=== PATIENT | male | born 1945 | race Caucasian/White ===

== ENCOUNTER 2016-07-15 17:31 | Emergency (ER) | payer MEDICARE ==
[~2016-07-15] VITALS: Ht 175.3 cm; Wt 79.5 kg
[2016-07-15 17:36] VITALS: BP 125/81; PULSE 111; RESP 16; O2SAT 96
--- NOTE | 2016-07-15 18:05 | ED.REPORT ---
HPI-Abd Pain M 40 and Over Date of Service Jul 15, 2016 ED Provider: Dr. Teto Chamberlain 70 year old male with a history of lung cancer currently in remission, COPD and GERD who presents to the ED due to constipation and urinary retention. Pt states his last BM was 3-5 days ago. Typically, he goes 2-3 days between BM's. Pt has had urinary urgency for the last few days with minimal urinary output this morning. He reports lower abd pain. Pt is not taking pain medications. Nursing Notes Stated Complaint: ABDOMINAL PAIN/NO BOWEL MOVEMENTS IN DAYS Chief Complaint: Male Abdominal Pain Nursing Notes Reviewed: Yes Allergies: Coded Allergies: No Known Allergies (Verified , 07/15/16) General Time Seen by MD: 18:05 Chief Complaint Abdominal pain, Constipation, Unable to urinate Hx Obtained From: Patient, Spouse Arrived By: Walk-in Sudden in Onset?: No Onset Occurred: 3 days ago Symptom Duration: Since onset Progression since Onset: Constant, Gradually worsening Location: : Abdomen lower Quality: Painful Radiation: : Does not radiate Severity: Current: Moderate Associated with: Denies: Fever, Vomiting Pertinent Negative: Relieved by nothing Past Medical History Past Medical History Lung Cancer- In remission COPD GERD Past Surgical History Reports: Appendectomy Smoking History Current Every Day Smoker Social History + Alcohol and substance use. Ambulatory Status Independent Review of Systems Basic Review of Systems Eyes: Vision NL, No discharge ENT: Hearing NL, No pain, No nasal congestion, No pharyngeal pain Allergy / Immune: No allergy Neurologic: NL mental status, No weakness Psychiatric: Normal thought content Constitutional: Denies: Fever Respiratory: Denies: Shortness of breath Cardiovascular: Denies: Chest pain GI: Reports: Abdominal pain, Constipation, Denies: Vomiting Male: Reports Urination decreased (retention) Complete sys rev & neg: except as marked. Physical Exam Initial Vital Signs Vital Signs (First) Date Time Temp Pulse Resp B/P Pulse Ox O2 Delivery O2 Flow Rate FiO2 07/15/16 17:36 36.1 111 16 125/81 96 Room Air Initial VS: Reviewed Head / Eyes: Atraumatic, Normocephalic, PERRL ENT: Conjunctiva normal, No scleral icterus Neck: Full range of motion Extremities: Vascular intact, Neuro intact Skin: Warm, Dry, No cyanosis Neurologic: Alert, Oriented, Nonfocal Psychiatric: Mood/affect normal, Behavior normal, Normal thought content General/Constitutional: Awake, Alert Respiratory / Chest: No respiratory distress wheezing course Cardiovascular: Heart rate NL, Regular rhythm, Heart sounds NL, Peripheral circulation NL Bowel Sounds / Distention: Positive: Distention moderate distended bladder seen on bedside US Back: Atraumatic, Full range of motion Interpretation & Diagnostics Lab Results Interpretation Result Diagram: 07/15/16 18007/15/16 180 Test 07/15/16 18:00 07/15/16 18:02 07/15/16 21:14 07/15/16 22:40 Hold Purple Top Tube Received (Received) Hold Blue Top Tube Received (Received) Hold Red Top Tube Received (Received) Hold [place] Top Tube Received (Received) White Blood Count 13.7th/mm3 (3.8-10.1) Red Blood Count 5.07mil/mm3 (4.40-5.80) Hemoglobin 15.7g/dL (13.8-17.2) Hematocrit 44.9% (41.0-50.0) Mean Corpuscular Volume 88.6fL (81-100) Mean Corpuscular Hemoglobin 31.0pg (27.0-35.0) Mean Corpuscular Hemoglobin Concent 35.0% (32.0-37.0) Red Cell Distribution Width 12.6% (12.3-15.4) Platelet Count 213bil/L (150-400) Neutrophils (%) (Auto) 88.8% (40-74) Lymphocytes (%) (Auto) 3.9% (14-46) Monocytes (%) (Auto) 6.7% (4-12) Eosinophils (%) (Auto) 0.2% (0-5) Basophils (%) (Auto) 0.2% (0-3) Sodium Level 139mEq/L (134-144) Potassium Level 4.4mEq/L (3.5-5.2) Chloride Level 101mEq/L (97-108) Carbon Dioxide Level 21mmol/L (18-29) Blood Urea Nitrogen 19mg/dL (8-27) Creatinine 1.00mg/dL (0.76-1.27) Estimat Glomerular Filtration Rate 79mL/min (>59) Glucose Level 113mg/dL (60-99) Calcium Level 9.4mg/dL (8.5-10.1) Total Bilirubin 0.6mg/dL (0.0-1.2) Aspartate Amino Transf (AST/SGOT) 21U/L (0-50) Alanine Aminotransferase (ALT/SGPT) 17U/L (0-44) Alkaline Phosphatase 61U/L (25-160) Total Protein 7.4g/dL (6.4-8.4) Albumin 4.6g/dL (3.4-5.0) Urine Color Dark yellow (YELLOW) Urine Appearance Clear (CLEAR,HAZY) Urine pH 5.5 (5.0-8.0) Urine Specific [place] >1.030 (1.003-1.035) Urine Protein Negativemg/dL (NEG,TRACE) Urine Glucose (UA) Negativemg/dL (NEGATIVE) Urine Ketones 15mg/dL (NEGATIVE) Urine Occult Blood Large (NEGATIVE) Urine Nitrite Negative (NEGATIVE) Urine Bilirubin Negative (NEGATIVE) Urine Urobilinogen Normalmg/dL (NORMAL) Urine Leukocyte Esterase Negative (NEGATIVE) Urine RBC 11-50/hpf (0-2) Urine WBC 0-5/hpf (0-5) Urine Epithelial Cells Few/hpf (NONE-MOD) Urine Crystals None seen (NONE SEEN) Urine Bacteria Few/hpf (NONE-FEW) Urine Hyaline Casts None/lpf (NONE) Urine Granular Casts None seen (NONE SEEN) Urine Waxy Casts None seen (NONE SEEN) Urine Red Blood Cell Casts None seen (NONE SEEN) Urine White Blood Cell Casts None seen (NONE SEEN) Urine Mucus None seen (None Seen) Urine Trichomonas None seen (NONE SEEN) Urine Yeast None (NONE SEEN) Urinalysis Comment None Urine Culture Reflexed Not indicated Lactic Acid Level 1.5mmol/L (0.4-2.0) Troponin T 0.010ug/L (0.0-0.011) General Lab Results Interp 1: Labs reviewed Pulse Oximetry Interpretation Pulse Oximetry: Pulse Ox normal (96), On room air X-Ray Abdominal Interpretation IMPRESSION: Acute disease is seen in the acute abdomen series. Cause of abdominal pain is not identified. Right hilar mass previously evaluated and grossly unchanged in appearance on chest x-ray. Probable small hiatal hernia. Dictated by: Panfilo Crenshaw M.D. on 07/15/2016 at 20:09 Study: 2 view Interpretation / Wet Read by: Interpret - Radiologist CT Abd / Pelvis Interpretation IMPRESSION: 1. Cause of abdominal pain and white count is not identified. Appendix is considered normal. Kidneys do not show any abnormality to suggest inflammation. Bladder has a Kirkpatrick catheter within it. There is moderate enlargement of the prostate. 2. Bilateral small adrenal nodules are present. Dictated by: Panfilo Crenshaw M.D. on 07/15/2016 at 21:49 Study type: Abdominal CT IV contrast Interpretation / Wet Read by: Interpret - Radiologist Re-Eval/Medical Decision Time of Eval: 20:53 Re-Evaluation/Progress Note: Pt with urine output of 500cc after kirkpatrick placement. Pt was able to have a small BM. Abd pain has decreased. Updated pt and family of labs and imaging. Pt understands and agrees with plan for CT abd. Time of Eval: 22:43 Re-Evaluation/Progress Note: Pt improved. Updated pt of labs and imaging results. Discussed plan for discharge and follow up. All questions addressed. Counseled Regarding: Diagnosis, Lab results, Need for follow-up, When/why to return to ED Discharge & Departure Primary Impression: Urinary retention Additional Impression: UTI (urinary tract infection) Urinary tract infection type: site unspecified Hematuria presence: with hematuria Qualified Code: N39.0 - Urinary tract infection, site not specified Disposition: Home Vital Signs - All Vital Signs Date Time Temp Pulse Resp B/P Pulse Ox O2 Delivery O2 Flow Rate FiO2 07/16/16 00:05 36.7 98 16 122/78 96 Room Air 07/15/16 19:43 102 16 96 Room Air 07/15/16 17:36 36.1 111 16 125/81 96 Room Air )( All Prior VS Reviewed: Yes Condition: Improved Patient Instructions: Urinary Retention in Men (ED), Urinary Tract Infection in Women (ED) Additional Instructions: Please take the antibiotic, Cipro, two times a day for a week for UTI. Keep the catheter in place with the leg bag until you are seen by your PCP. You can take Flomax daily for 7 days. Do not stand quickly while you are taking this medication. Discuss with your doctor if you want to take this indefinitely. Call to schedule an appointment on Monday or Monday for catheter removal. I have given you a referral to the urologist. Return to the ER for any problems or worsening symptoms. Referrals: Terry Calderon MD (PCP) Emy Barron MD Attestation Portions of this note were transcribed by Tg Guardado. I, (Dr. Chamberlain) personally performed the history, physical exam and medical decision-making; I reviewed and confirmed the accuracy of the information in the transcribed note. Signed by: Tg Guardado. Jhony, 07/15/2016, [id number] copies to: Emy Barron MD; Terry Calderon MD, Todd P DO Jul 15, 2016 18:05 Tg Guardado Jul 15, 2016 18:44
[2016-07-15] MEDS ORDERED: Lidocaine 2% 6mL Topical Jelly ONE (18:38)
[2016-07-15] MEDS ORDERED: Albuterol-Ipratropium 3 mL Inhalation Solution NEB ONE (18:40)
[2016-07-15] MEDS ORDERED: Sodium Biphos-Phos 133 mL Enema RECTAL ONE (18:40)
[2016-07-15 18:52] LABS: BASOPHILS % (AUTO) 0.2 % (0-3); EOSINOPHILS % (AUTO) 0.2 % (0-5); MONOCYTES % (AUTO) 6.7 % (4-12); Mean Corpuscular Volume 88.6 fL (81-100); NEUTROPHILS % (AUTO) 88.8 % (40-74); Platelet Count 213 bil/L (150-400)
[2016-07-15 19:43] VITALS: PULSE 102; RESP 16; O2SAT 96
--- NOTE | 2016-07-15 20:13 | DRSVH ---
PROCEDURE: X-RAY ACUTE ABDOMINAL SERIES ([id number]) INDICATIONS: abdominal pain, constipation, urine retention TECHNIQUE: One view chest and two views of the abdomen were acquired. COMPARISON: None. FINDINGS: Surgical changes and devices: None. Chest: No abnormal density in the right hilum the appearance is considered unchanged since films from August 2015.. A CT scan at that time showed a right hilar mass measuring 26 x 37 mm. Heart size is no rmal. No pleural effusions. No pneumoperitoneum. Pulmonary vasculature is normal. There is no effus ion. There is some linear atelectasis extending from the right hilum towards the periphery of the bozena g Abdomen: Bowel gas pattern is normal. No suspicious calcifications. Visualized solid organ contour s appear normal. Bones: No suspicious bony lesions. IMPRESSION: Acute disease is seen in the acute abdomen series. Cause of abdominal pain is not identif ied. Right hilar mass previously evaluated and grossly unchanged in appearance on chest x-ray. Probable small hiatal hernia. Dictated by: Panfilo Crenshaw M.D. on 07/15/2016 at 20:09 Approved by: Panfilo Crenshaw M.D. on 07/15/2016 at 20:11
[2016-07-15] MEDS ORDERED: 0.9% Sodium Chloride 1,000 ML IV ONE (21:05)
[2016-07-15 21:29] LABS: APPEARANCE,URINE CLEAR (CLEAR,HAZY); COLOR,URINE DARK YELLOW (YELLOW); OCCULT BLOOD,URINE LARGE (NEGATIVE); PH,URINE 5.5 (5.0-8.0); UROBILINOGEN,URINE NORMAL (NORMAL)
--- NOTE | 2016-07-15 21:57 | DRSVH ---
PROCEDURE: CT ABDOMEN AND PELVIS WITH CONTRAST ([id number]) INDICATIONS: lower abdominal pain, 14K wbc count TECHNIQUE: After the administration of intravenous contrast, 5 mm thick sections acquired from the diaphragm to the symphysis. 5 mm coronal and sagittal reformats were acquired. For radiation dose reduction, the following was used: automated exposure control, adjustment of mA and/or kV according to patient siz e. COMPARISON: None. FINDINGS: Image quality: Excellent. ABDOMEN: Lung bases: Lung bases are clear. Heart size is normal. There is a moderate-sized hiatal hernia. Solid organs: Liver and spleen are normal in size and enhancement. Gallbladder is within normal pierce its. Biliary system is non dilated. Pancreas enhances normally. There is a 17 mm left adrenal nodul e present. There is a 1 cm right adrenal nodule. Kidneys demonstrate normal size and enhancement, wit hout hydronephrosis. Peritoneum and bowel: Bowel loops demonstrate normal wall thickness and caliber. No free fluid or a ir. Structure thought to be the appendix is considered normal for an appendix. Nodes and vessels: No retroperitoneal or mesenteric adenopathy by size criteria. Aorta and inferior vena cava are normal in size. Miscellaneous: No ventral hernias. PELVIS: Genitourinary: Bladder contains a [place] catheter.. Prostate is moderately enlarged. Miscellaneous: No inguinal hernias or adenopathy. Bones: No suspicious bony lesions. No vertebral body compression fractures. IMPRESSION: 1. Cause of abdominal pain and white count is not identified. Appendix is considered normal. Kidneys do not show any abnormality to suggest inflammation. Bladder has a [place] catheter within it. There is moderate enlargement of the prostate. 2. Bilateral small adrenal nodules are present. Dictated by: Panfilo Crenshaw M.D. on 07/15/2016 at 21:49 Approved by: Panfilo Crenshaw M.D. on 07/15/2016 at 21:55
[2016-07-16 00:05] VITALS: BP 122/78; PULSE 98; RESP 16; O2SAT 96
== END 2016-07-16 00:06 | disposition home or self-care (01) ==
LOC: SED 17:31
DX: R33.9 Retention of urine, unspecified (principal); N39.0 Urinary tract infection, site not specified; K59.00 Constipation, unspecified; R10.30 Lower abdominal pain, unspecified; J44.9 Chronic obstructive pulmonary disease, unspecified; K21.9 Gastro-esophageal reflux disease without esophagitis; F17.200 Nicotine dependence, unspecified, uncomplicated; E27.9 Disorder of adrenal gland, unspecified; Z85.118 Personal history of other malignant neoplasm of bronchus and lung
CPT/HCPCS: 36415; 51702; 74022; 74177; 80053; 81000; 83605; 84484; 85025; 87086; 94640; 96360; 99285; J7030; J7620; Q9967